=== PATIENT | male | born 1995 | race African-American/Black ===

== ENCOUNTER 2021-10-12 00:03 | Emergency (ER) | payer OTHER ==
[~2021-10-12] VITALS: Ht 182.9 cm; Wt 114.0 kg
[2021-10-12 01:15] LABS: BASOPHILS % 0.5 % (0.0-2.0); EOSINOPHILS % 1.5 % (0.0-5.0); HEMATOCRIT. 44.9 % (42.0-52.0); HEMOGLOBIN. 15.2 g/dL (14.0-18.0); LYMPHOCYTES % 47.6 % (20.0-50.0); MEAN CORPUSCULAR HEMOGLOBIN 29.3 pg (28.0-32.0); MEAN CORPUSCULAR VOLUME 86.6 fL (80.0-94.0); MEAN PLATELET VOLUME 8.2 fl (7.4-10.4); MONOCYTES % 6.8 % (2.0-8.0); NEUTROPHILS % 43.6 % (40.0-76.0); PLATELET 236 x1000/uL (130-400); RED BLOOD CELL COUNT 5.19 mill/uL (4.7-6.1); RED CELL DISTRIBUTION WIDTH 14.3 % (11.6-14.6)
[2021-10-12 01:23] LABS: CHLORIDE 106 mEq/L (98-107)
[2021-10-12] MEDS ORDERED: METHOCARBAMOL 500MG TABLET PO ONE (01:45)
[2021-10-12] MEDS ORDERED: KETOROLAC 30MG/ML VIAL IM ONE (01:45)
[2021-10-12] MEDS ORDERED: IBUP-2029 MT (03:10)
[2021-10-12] MEDS ORDERED: BACL20TA MT (03:10)
[2021-10-12 03:30] VITALS: BP 110/60
== END 2021-10-12 03:40 | disposition home or self-care (01) ==
LOC: ER 00:34
DX: R25.2 Cramp and spasm (principal)
CPT/HCPCS: 36415; 71045; 80053; 83690; 83880; 84484; 85025; 93005; 96372; 99285; J1885

== ENCOUNTER 2022-11-11 23:30 | Emergency (ER) | payer OTHER ==
[~2022-11-11] VITALS: Ht 182.9 cm; Wt 111.0 kg
[~2022-11-11 23:30] MED LIST: BACL20TA MT; IBUP-2029 MT
[2022-11-12] MEDS ORDERED: KETOROLAC 60MG/2ML VIAL IM STA (04:05)
[2022-11-12] MEDS ORDERED: METOCLOPRAMIDE HCL 10MG/2ML VIAL IM ONE (04:15)
[2022-11-12 05:08] VITALS: BP 146/95
[2022-11-12] MEDS ORDERED: NAPR-681 PO (06:18)
[2022-11-12] MEDS ORDERED: CYCL5TAB PO ×3 (06:18→06:21)
== END 2022-11-12 06:43 | disposition home or self-care (01) ==
LOC: ER 23:30
DX: R51.9 Headache, unspecified (principal)
CPT/HCPCS: 70450; 70486; 96372; 99285; J1885; J2765